=== PATIENT | female | born 1955 | race Caucasian/White ===

== ENCOUNTER 2024-01-01 07:03 | Day surgery (SDC) | payer MEDICARE ==
[~2024-01-01] VITALS: Ht 157.5 cm; Wt 75.0 kg
[2024-01-01] MEDS ORDERED: SODIUM CHLORIDE 0.9% 1,000 ML ONE (07:11)
[2024-01-01] MEDS ORDERED: MIDAZOLAM HCL 2 MG/2 ML VIAL ONE (08:00)
[2024-01-01] MEDS ORDERED: FentaNYL CITRATE PF 100 MCG/2 ML VIAL ONE (08:00)
[2024-01-01] MEDS ORDERED: SIMV-43 PO (08:06)
[2024-01-01] MEDS ORDERED: LOSA1TAB40 PO (08:06)
[2024-01-01] MEDS: SODIUM CHLORIDE 0.9% 1,000 ML IV ONE (08:23)
[2024-01-01 09:30] VITALS: PULSE 78; RESP 15; O2SAT 99
[2024-01-01] MEDS ORDERED: MethylPREDNISolone SOD SUCC 125 MG/2 ML VIAL ONE (09:55)
[2024-01-01] MEDS: MethylPREDNISolone SOD SUCC 125 MG/2 ML VIAL IVP ONE (10:00)
[2024-01-01] MEDS ORDERED: LIDOCAINE 4% 50 ML SOLUTION ONE (12:00)
[2024-01-01] MEDS ORDERED: BENZOCAINE 20% 50 MCG/SPRAY 57 GM ONE (12:00)
[2024-01-01] MEDS ORDERED: LIDOCAINE 2% 11 ML JELLY ONE (12:00)
[2024-01-01] MEDS ORDERED: ALBUTEROL SULFATE 2.5 MG/0.5 ML NEB SOLUTION NEB ONE (12:00)
== END 2024-01-01 11:30 | disposition home or self-care (01) ==
LOC: SURGERY 07:03
PROVIDERS: ATTEND Internal Medicine Critical Care Medicine
DX: J38.4 Edema of larynx (principal); B37.0 Candidal stomatitis; Z79.899 Other long term (current) drug therapy
CPT/HCPCS: 31623; 87206; 87101; 87220; 87070; 88108; 31624; 94640; 71045; 87015; J3010; J2250; J2930; Q9967; J7030; J7613; Z7610